=== PATIENT | female | born 1980 | race Caucasian/White ===

== ENCOUNTER 2016-08-16 09:12 | Inpatient (IN) | payer OTHER ==
[2016-08-16] VITALS (14 sets, daily range): BP systolic 96–120; RESP 5–24; TEMP 97.4–98.4; Ht 175.3 cm; Wt 81.2 kg
[~2016-08-16] VITALS: Ht 175.3 cm; Wt 81.2 kg
[2016-08-16] MEDS ORDERED: FAMOTIDINE 20 MG INJ IV ONE (09:25)
[2016-08-16] MEDS ORDERED: METOCLOPRAMIDE 10 MG/2 ML VIAL IV ONE (09:25)
[2016-08-16] MEDS ORDERED: CEFAZOLIN IV ONE (09:25)
[2016-08-16] MEDS ORDERED: LACT RINGERS 1,000 ML IV SCH (09:25)
[2016-08-16] MEDS ORDERED: KETOROLAC 30 MG/ML VIAL IV ONE (10:45)
[2016-08-16] MEDS ORDERED: MORPHINE PF 0.5 MG/ML 10 ML IV ONE (10:45)
[2016-08-16] MEDS ORDERED: FENTANYL 100 MCG/2 ML AMP IV ONE (10:45)
[2016-08-16] MEDS ORDERED: BUTORPHANOL 1 MG/ML VIAL IV PRN (11:10)
[2016-08-16] MEDS ORDERED: MORPHINE 2 MG/ML SYR IV PRN ×2 (11:10)
[2016-08-16] MEDS ORDERED: ONDANSETRON 4 MG VIAL IV PRN ×3 (11:10→12:20)
[2016-08-16] MEDS ORDERED: OXYCODONE 5 MG TAB PO PRN (11:10)
[2016-08-16] MEDS ORDERED: MORPHINE 4 MG/ML SYR IV PRN ×2 (11:10)
[2016-08-16] MEDS ORDERED: PROMETHAZINE 25 MG/ML VIAL IV PRN (11:10)
[2016-08-16] MEDS ORDERED: DILAUDID 1 MG/ML AMP IV PRN (11:10)
[2016-08-16] MEDS ORDERED: MEPERIDINE 25 MG/ML IV PRN (11:10)
[2016-08-16] MEDS ORDERED: SALINE FLUSH 10 ML FLUSH PRN (11:10)
[2016-08-16] MEDS ORDERED: NALOXONE 0.4 MG/ML AMP IV PRN (11:10)
[2016-08-16] MEDS: KETOROLAC 30 MG/ML VIAL IV SCH ×2 (12:00→17:37)
[2016-08-16] MEDS ORDERED: BISACODYL 10 MG SUPP RECTAL PRN (12:20)
[2016-08-16] MEDS ORDERED: TDaP 0.5 ML VIAL IM.VACC ONE (12:20)
[2016-08-16] MEDS ORDERED: MAG HYDROX 30 ML UDC PO PRN (12:20)
[2016-08-16] MEDS ORDERED: OXYTOCIN 15 UNITS/250 ML NS 250 ML IV SCH (12:20)
[2016-08-16] MEDS ORDERED: MEASLES,MUMPS,RUBELLA VAC SUBQ.VACC ONE (12:20)
[2016-08-16] MEDS: DEXTROSE 5% LACT RINGERS 1,000 ML IV SCH ×2 (14:10→22:00)
[2016-08-16] MEDS: DIPHENHYDRAMINE 50 MG/ML VIAL IV PRN ×2 (14:39→20:59)
[2016-08-16] MEDS: SALINE FLUSH 10 ML FLUSH SCH (20:00)
[2016-08-17] MEDS: KETOROLAC 30 MG/ML VIAL IV SCH ×2 (00:11→05:42)
[2016-08-17 01:39] VITALS: BP_SYST 87; RESP 16; TEMP 98
[2016-08-17 01:40] VITALS: RESP 16
[2016-08-17] MEDS: DEXTROSE 5% LACT RINGERS 1,000 ML IV SCH (04:39)
[2016-08-17 05:39] VITALS: BP_SYST 100; RESP 18; TEMP 98.1
[2016-08-17] MEDS: SODIUM CHLORIDE 0.9% FLUSH BAG 500 ML IV SCH (06:00)
[2016-08-17] MEDS: SALINE FLUSH 10 ML FLUSH SCH ×2 (07:23→20:00)
[2016-08-17] MEDS: DOCUSATE SOD 100 MG CAP PO SCH (08:00)
[2016-08-17 09:07] VITALS: BP_SYST 97; TEMP 98
[2016-08-17 09:08] VITALS: RESP 20
[2016-08-17] MEDS: Ibuprofen 600 MG TAB PO SCH ×2 (11:54→17:29)
[2016-08-17] MEDS: OXYCODONE/APAP 5/325 TAB PO PRN ×2 (14:20→19:22)
[2016-08-17] MEDS ORDERED: TDaP 0.5 ML VIAL IM.VACC ONE (17:19)
[2016-08-17 17:32] VITALS: BP_SYST 111; RESP 18; TEMP 97.7
[2016-08-18] MEDS: Ibuprofen 600 MG TAB PO SCH ×3 (00:16→11:38)
[2016-08-18] MEDS: OXYCODONE/APAP 5/325 TAB PO PRN ×3 (00:17→11:49)
[2016-08-18 05:27] VITALS: BP_SYST 95; RESP 16; TEMP 97.7
[2016-08-18] MEDS: SODIUM CHLORIDE 0.9% FLUSH BAG 500 ML IV SCH (06:00)
[2016-08-18] MEDS: SALINE FLUSH 10 ML FLUSH SCH (07:06)
[2016-08-18] MEDS: DOCUSATE SOD 100 MG CAP PO SCH (08:09)
[2016-08-18 09:25] VITALS: BP_SYST 115; RESP 20; TEMP 97.5
== END 2016-08-18 12:02 | disposition home or self-care (01) | DRG 766 ==
LOC: LD 09:12 → OB 15:00
PROVIDERS: ADMIT Obstetrics & Gynecology; ATTEND Obstetrics & Gynecology
PROC: 10D00Z1 Extraction of Products of Conception, Low, Open Approach (ICD-10-PCS; principal; 2016-08-16)
PROC: 0UB70ZZ Excision of Bilateral Fallopian Tubes, Open Approach (ICD-10-PCS; 2016-08-16)
DX: O34.219 Maternal care for unspecified type scar from previous cesarean delivery (principal); Z23 Encounter for immunization; Z37.0 Single live birth; Z3A.38 38 weeks gestation of pregnancy
CPT/HCPCS: 82803; 85014; 85018; 85025; 86850; 86900; 86901; 88302; 96372